=== PATIENT | female | born 1965 | race Caucasian/White ===

== ENCOUNTER → 2017-03-07 | Outpatient (CLI) | payer BC ==
[~2017-03-07] MED LIST: BIRTH CONTOL PO; LEVO25TA9 PO; METF500T4 PO
== END ==
LOC: WC.BC 16:03
DX: Z12.31 Encounter for screening mammogram for malignant neoplasm of breast (principal); N64.59 Other signs and symptoms in breast
CPT/HCPCS: 77063; G0202